=== PATIENT | male | born 1960 | race Caucasian/White ===

== ENCOUNTER 2016-04-10 10:22 | Emergency (ER) | payer OTHER ==
[~2016-04-10] VITALS: Ht 177.8 cm; Wt 83.9 kg
[~2016-04-10 10:22] MED LIST: LISINOPRIL10 MG PO; METFORMIN1000 MG PO; PERCOCET 325 MG1 TA2 PO
[2016-04-10 10:26] VITALS: BP 137/84
[2016-04-10] MEDS ORDERED: AMOXICILLIN875 M1 PO (11:10)
--- NOTE | 2016-04-10 11:10 | ED EAR COMPLAINT ---
History of Present Illness General Chief Complaint: Ear Complaints Stated Complaint: WATER IN R EAR Source: patient, old records Exam Limitations: no limitations Vital Signs & Intake/Output Vital Signs & Intake/Output Vital Signs Date Time Temp Pulse Resp B/P Pulse O2 O2 Flow FiO2 Ox Delivery Rate 04/10 1026 97.5 90 18 137/84 99 Room Air Room Air Allergies Coded Allergies: NO KNOWN ALLERGIES (07/19/14) Reconcile Medications Amoxicillin 875 MG TABLET 1 TAB PO BID otitis media Lisinopril 10 MG TABLET 1 TAB PO DAILY BP (Reported) METFORMIN HCL (Metformin) 1,000 MG TABLET 1 TAB PO BID DIABETES (Reported) HOLD: INSULIN SS OXYCODONE HCL/ACETAMINOPHEN (Percocet 5-325 MG Tablet) 325 MG/5 MG TAB 1 TAB PO Q4-6 PRN PRN PAIN Triage Note: TRIAGE: 56 Y/O MALE PRESENTS C/O "WATER IN RIGHT EAR" X DAYS. Triage Nurses Notes Reviewed? yes Onset: several days Duration: day(s):, constant, continues in ED Timing: recent history Injury Environment: home Severity: moderate No Modifying Factors: none HPI: Several days prior to admission patient complains of having water in his right ear. He's tried peroxide without success. He denies fever chills nausea vomiting diarrhea abdominal pain chest pain shortness of breath headache dysuria rash bleeding change in hearing. Past History Travel History Traveled to [place] past 21 day No Medical History Any Pertinent Medical History? see below for history Cardiovascular: hypertension Respiratory: bronchitis Endocrine: diabetes History of MRSA: No History of VRE: No History of CDIFF: No Surgical History Surgical History: non-contributory Psychosocial History Who do you live with Spouse What is your primary language Citizen Of [place] Tobacco Use: Never used ETOH Use: denies use Illicit Drug Use: denies illicit drug use Family History Family History, If Any: Relation not specified for: *No pertinent family history Hx Contributory? No Review of Systems Review of Systems Constitutional: Reports: no symptoms. EENTM: Reports: see HPI, ear discharge. Respiratory: Reports: no symptoms. Cardiovascular: Reports: no symptoms. GI: Reports: no symptoms. Genitourinary: Reports: no symptoms. Musculoskeletal: Reports: no symptoms. Skin: Reports: no symptoms. Neurological/Psychological: Reports: no symptoms. Hematologic/Endocrine: Reports: no symptoms. Immunologic/Allergic: Reports: no symptoms. All Other Systems: Reviewed and Negative Physical Exam Physical Exam General Appearance: well developed/nourished, alert, awake, anxious, mild distress Head: atraumatic Eyes: Bilateral: normal appearance, PERRL, EOMI. Ears: Left: Tympanic normal. Right: Tympanic dull. Bilateral: canal normal. 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 Skin: intact, normal color, warm/dry Progress Differential Diagnoses I considered the following diagnoses in my evaluation of the patient: Otitis media otitis externa foreign body Plan of Care: Current Medications Sig/Rosi Start time Last Medication Dose Stop Time Status Admin Amoxicillin 750 MG ONCE ONE 04/10 1115 UNVr (Amoxil) 04/10 1116 Initial ED EKG: none Departure Departure Time of Disposition: 1108 Disposition: HOME OR SELF CARE Condition: Stable Clinical Impression Primary Impression: Otitis media Qualifiers: Otitis media type: unspecified Laterality: right Chronicity: unspecified Qualified Code: H66.91 - Otitis media, unspecified, right ear Referrals: MARINA RODGERS MD (PCP/Family) Departure Forms: Customer Survey General Discharge Information Prescriptions: Current Visit Scripts Amoxicillin 1 TAB PO BID #20 TAB
== END 2016-04-10 11:21 ==
LOC: ERH 10:22
DX: H66.91 Otitis media, unspecified, right ear (principal)

== ENCOUNTER 2016-06-09 08:14 | Emergency (ER) | payer OTHER ==
[~2016-06-09] VITALS: Ht 177.8 cm; Wt 83.9 kg
[~2016-06-09 08:14] MED LIST changes: +AMOXICILLIN875 M1 PO
[2016-06-09 08:19] VITALS: BP 148/97
[2016-06-09] MEDS ORDERED: CYCLOBENZAPRINE5 M2 PO (09:11)
[2016-06-09] MEDS ORDERED: NAPROSYN500 M1 PO (09:11)
--- NOTE | 2016-06-09 09:11 | ED NECK/BACK PAIN COMPLAINT ---
History of Present Illness General Chief Complaint: Neck/Upper Back Pain/Injury Stated Complaint: NECK PAIN X3 DAYS Source: patient Exam Limitations: no limitations Vital Signs & Intake/Output Vital Signs & Intake/Output Vital Signs Date Time Temp Pulse Resp B/P Pulse O2 O2 Flow FiO2 Ox Delivery Rate 06/09 0819 96.1 85 16 148/97 97 Room Air Allergies Coded Allergies: NO KNOWN ALLERGIES (07/19/14) Triage Note: 56 Y/O MALE C/O POSTERIOR NECK PAIN X 3 DAYS. STATES "I MIGHT HAVE SLEPT WRONG TUESDAY". HAS BEEN TAKING OTC MEDICATIONS AND USING HEAT WITH NO RELIEF. Triage Nurses Notes Reviewed? yes HPI: This patient is a 56-year-old male who presented to the emergency department today for evaluation of neck pain 3 days. He reported he was at [employer] on Tuesday where he was bowing his head to a first noticed pain in the back of his neck. The pain gets up to a 10 out of 10 at its worst. The pain has been constant since onset and worse with movement. The pain is nonradiating and sharp. He denied any headaches, visual changes, lightheadedness, dizzy, paresthesias, or any other associated symptoms. He denied any trauma to the area. (CHRISTIANO JACOBSEN,KAMAR) Reconcile Medications Amoxicillin 875 MG TABLET 1 TAB PO BID otitis media Cyclobenzaprine HCl 5 MG TABLET 1 TAB PO BID PRN MUSCLE SPASMS Lisinopril 10 MG TABLET 1 TAB PO DAILY BP (Reported) METFORMIN HCL (Metformin) 1,000 MG TABLET 1 TAB PO BID DIABETES (Reported) HOLD: INSULIN SS Naproxen (Naprosyn) 500 MG TABLET 1 TAB PO BID PRN PAIN AND INFLAMMATION OXYCODONE HCL/ACETAMINOPHEN (Percocet 5-325 MG Tablet) 325 MG/5 MG TAB 1 TAB PO Q4-6 PRN PRN PAIN (LISA GONG MD) Past History Travel History Traveled to [place] past 21 day No Medical History Any Pertinent Medical History? see below for history Neurological: NONE EENT: NONE Cardiovascular: hypertension Respiratory: bronchitis Gastrointestinal: NONE Hepatic: NONE Renal: NONE Musculoskeletal: NONE Psychiatric: NONE Endocrine: diabetes Blood Disorders: NONE Cancer(s): NONE COUNCILOR/Reproductive: NONE History of MRSA: No History of VRE: No History of CDIFF: No Surgical History Surgical History: non-contributory Psychosocial History Who do you live with Spouse What is your primary language Japanese Tobacco Use: Never used Family History Family History, If Any: Relation not specified for: *No pertinent family history Hx Contributory? No (KAMAR ALVARADO PA-C) Review of Systems Review of Systems Constitutional: Reports: no symptoms. Eyes: Reports: no symptoms. Ears, Nose, Throat, Mouth: Reports: no symptoms. Respiratory: Reports: no symptoms. Cardiovascular: Reports: no symptoms. Gastrointestinal/Abdominal: Reports: no symptoms. Musculoskeletal: Reports: see HPI. Skin: Reports: no symptoms. Neurological/Psychological: Reports: no symptoms. All Other Systems: Reviewed and Negative (KAMAR ALVARADO PA-C) Physical Exam Physical Exam Neck: normal inspection, supple, full range of motion, normal alignment, muscle spasm, paraspinous muscle tender, no midline tenderness Comments: Well-developed well-nourished person in no acute distress HEENT: Head normocephalic/atraumatic, moist mucous membranes Back: Normal gait Respiratory: No respiratory distress. Speaking sentences Extremities: No edema, full range of motion Neuro: Alert and oriented x3. 5 out of 5 muscular strength in all extremities Psych: Mood affect normal, normal memory normal judgment. Skin: Warm and dry, no rash on exposed skin (KAMAR ALVARADO PA-C) Progress Differential Diagnosis: C spine injury, carotid dissection, herniated disc, myofascial strain, spinal cord inj, thoracic outlet syn Plan of Care: THIS PATIENT IS A 56-YEAR-OLD MALE WHO PRESENTED TO THE EMERGENCY DEPARTMENT TODAY FOR EVALUATION OF NECK PAIN. No known injury. Muscular spasm and paraspinal musculature tenderness noted on physical examination. No midline tenderness. Likely muscular strain. This patient is stable for outpatient management of his Downs and follow-up with his primary care physician. (KAMAR ALVARADO PA-C) Departure Departure Disposition: HOME OR SELF CARE Condition: Stable Clinical Impression Primary Impression: Muscle strain Referrals: MARINA RODGERS MD (PCP/Family) Additional Instructions: Take Flexeril as prescribed for muscle relaxation. Take naproxen as prescribed for pain and inflammation. Avoid any strenuous activity or heavy lifting. Gentle stretching. Follow-up with your primary care physician. Return for any worsening symptoms or concerns. Departure Forms: Customer Survey General Discharge Information Prescriptions: Current Visit Scripts Cyclobenzaprine HCl 1 TAB PO BID PRN MUSCLE SPASMS #10 TAB Naproxen (Naprosyn) 1 TAB PO BID PRN PAIN AND INFLAMMATION #20 TAB (CHRISTIANO JACOBSEN,KAMAR) PA/STAMP PAD FINISHER Co-Sign Statement Statement: ED Attending supervision documentation- [] I saw and evaluated the patient. I have also reviewed all the pertinent lab results and diagnostic results. I agree with the findings and the plan of care as documented in the PA's/STAMP PAD FINISHER's documentation. x I have reviewed the ED Record and agree with the PA's/STAMP PAD FINISHER's documentation. [] Additions or exceptions (if any) to the PAs/STAMP PAD FINISHER's note and plan are summarized below: [] (FARIDEH JORGENSEN,LISA)
== END 2016-06-09 09:19 ==
LOC: ERH 08:14
DX: S16.1XXA Strain of muscle, fascia and tendon at neck level, initial encounter (principal)

== ENCOUNTER 2017-04-27 08:41 | Emergency (ER) | payer OTHER ==
[~2017-04-27] VITALS: Ht 177.8 cm; Wt 83.9 kg
[~2017-04-27 08:41] MED LIST changes: +CYCLOBENZAPRINE5 M2 PO; +ERYTHROMYCIN1 GM OPH; +NAPROSYN500 M1 PO
[2017-04-27 08:45] VITALS: BP 148/88
--- NOTE | 2017-04-27 10:50 | RADIOLOGY REPORT ---
EXAMINATION: XR LUMBOSACRAL SPINE CLINICAL INFORMATION: Right-sided low back pain. COMPARISON: None TECHNIQUE: 4 views of the lumbosacral spine were obtained. FINDINGS: There are 5 nonrib-bearing lumbar type vertebral bodies. Vertebral body height is maintained. There is a mild levoconvex lumbar scoliosis. This creates some overlapping of structures at the lumbosacral junction but there is suspected to be mild grade 1 anterolisthesis of L5 on S1, and on the images available spondylolyses at L5 is not excluded. Otherwise sagittal alignment appears maintained. There is moderate intervertebral disc height loss with endplate sclerosis and spurring most notable at L3-L4 and L4-L5 where there are anterior bridging osteophytes. There is multilevel facet arthropathy. There are mild degenerative changes of the SI joints and imaged hips. The bowel gas pattern is nonobstructive. IMPRESSION: No evidence of compression deformity. There is a mild levoconvex lumbar scoliosis, which limits assessment of the lumbosacral junction, but there is the suggestion of grade 1 anterolisthesis of L5 on S1, and spondylolysis is not excluded. CT could be confirmatory in this regard. Elsewhere spondylosis most notable at L3-L4 and L4-L5.
== END 2017-04-27 11:54 | disposition admitted as inpatient to this hospital (09) ==
LOC: ERH 08:41
DX: S39.92XA Unspecified injury of lower back, initial encounter (principal); W10.9XXA Fall (on) (from) unspecified stairs and steps, initial encounter
CPT/HCPCS: 72110; 99281